=== PATIENT | male | born 1960 | race African-American/Black ===

== ENCOUNTER 2019-11-11 12:49 | Emergency (ER) | payer MEDICAID ==
[~2019-11-11] VITALS: Ht 195.6 cm; Wt 99.8 kg
[2019-11-11] MEDS ORDERED: ESCI10TA PO (13:09)
[2019-11-11] MEDS ORDERED: LISI10TA PO (13:09)
[2019-11-11] MEDS ORDERED: HYDR12.585 PO (13:09)
[2019-11-11] MEDS ORDERED: ATOR40TA68 PO (13:09)
[2019-11-11] MEDS ORDERED: THIA50TA10 PO (13:09)
[2019-11-11 13:10] VITALS: BP_SYST 210
[2019-11-11] MEDS: cloNIDine HCL 0.1 MG TABLET PO ONE (13:49)
[2019-11-11 15:09] VITALS: BP_SYST 169
== END 2019-11-11 15:09 | disposition home or self-care (01) ==
LOC: SED 12:49
DX: I10 Essential (primary) hypertension (principal); Z79.899 Other long term (current) drug therapy
CPT/HCPCS: 99283